=== PATIENT | female | born 1965 | race Caucasian/White ===

== ENCOUNTER 2020-03-01 21:38 | Emergency (ER) | payer MEDICARE, SELFPAY ==
--- NOTE | ~2020-03-01 | CT_ITS ---
EXAMINATION: CT abdomen pelvis wo con DATE: 03/01/2020 23:01 INDICATION: Left flank pain. TECHNIQUE: Computed tomography (CT) of the abdomen and pelvis was performed without intravenous contr ast. Automated exposure control and iterative reconstruction technique were employed. The dose-length product was 1276.05 mGy-cm. COMPARISON: None. FINDINGS: The visualized portions of the lung bases demonstrate mild atelectasis. A calcified left campbell ng nodule and calcified left hilar lymph nodes are consistent with old granulomatous disease. There i s mild bronchiectasis in right middle lobe and lingula. No pleural effusion. The heart size is normal . No pericardial effusion. The liver is normal. The gallbladder is distended, likely secondary to fas ting. The spleen, pancreas, and adrenal glands are normal. The right kidney is absent. There is corti beverley thinning of left kidney. There is a 13 mm stone in left kidney. There is moderate left hydronephr osis with transition point at the ureteropelvic junction. Motion artifact is noted. There is divertic ulosis of the colon without evidence of diverticulitis. There is a small sliding hiatal hernia. The a ppendix is normal. There is a right-sided supraventricular ventral hernia containing fat. There is a right rectus sheath hernia containing fat. There are no pathologically enlarged lymph nodes. There is no free intraperitoneal fluid. There is moderate lumbar spondylosis. IMPRESSION: 1. 13 mm nonobstructing left kidney stone. 2. Moderate left hydronephrosis with transition point at the ureteropelvic junction. Solitary left ki dney. 3. Gallbladder distention, which may be secondary to fasting. Correlate with physical exam to exclude acute cholecystitis. 4. Right-sided supraumbilical ventral hernia and right-sided rectus sheath hernia containing fat. 5. Small sliding hiatal hernia. Reviewed, dictated and finalized at location B. [facility] [employer] IMPRESSION: 1. 13 mm nonobstructing left kidney stone. 2. Moderate left hydronephrosis with transition point at the ureteropelvic junc tion. Solitary left kidney. 3. Gallbladder distention, which may be secondary to fasting. Correlate with ph ysical exam to exclude acute cholecystitis. 4. Right-sided supraumbilical ventral hernia and right-sided rectus sheath costa ia containing fat. 5. Small sliding hiatal hernia.
[2020-03-01 22:10] VITALS: BP 169/97; PULSE 93; RESP 18; TEMP 36.6; O2SAT 95
--- NOTE | 2020-03-01 22:24 | ED.GENADULT ---
HPI - General Adult General Chief complaint: Unspecified Stated complaint: 54YO female w/ known h.o renal calculi and 1 year h/o left flank pain here c/o worse pain over last 4 days. Denies fever, chills. Related Data Allergies Allergy/AdvReac Type Severity Reaction Status Date / Time No Known Allergies Allergy Verified 03/01/20 22:15 Review of Systems Review of Systems: All systems reviewed & are unremarkable except as noted in HPI and below Constitutional: Constitutional: Reports no additional constitutional complaints Cardiovascular: Cardiovascular: Reports no additional cardiovascular complaints Respiratory: Respiratory: Reports no additional respiratory complaints Gastrointestinal: Gastrointestinal: Reports no additional gastrointestinal complaints Genitourinary: Genitourinary: Reports no additional female genitourinary complaints Musculoskeletal: Musculoskeletal: Reports no additional musculoskeletal complaints Integumentary/Breasts: Skin/Breast: Reports system reviewed and no additional complaints, except as docu Neurologic: Reports system reviewed and no additional complaints, except as documented Psychiatric: Psychiatric: Reports no additional psychiatric complaints Endocrine: Endocrine: Reports no additional endocrine complaints Hematologic/Lymphatic: Hematologic/Lymphatic: Reports no additional hematologic/lymphatic complaints Allergic/Immunologic: Allergic/Immunologic: Reports no additional allergic/immunologic complaints [facility] Past Medical History Medical History CKD (chronic kidney disease) stage 2, GFR 60-89 ml/min Renal calculi UPJ (ureteropelvic junction) obstruction Exam Const: General: cooperative and healthy appearing Nutritional Appearance: overweight Orientation/consciousness: patient oriented x3 Limitations: no limitations Chest: Chest palpation & inspection: normal inspection of the chest and normal palpation of entire chest wall Resp: Effort & Inspection: normal respiratory effort Auscultation: clear to auscultation bilaterally Cardio: Jugular venous distension: no JVD Rate: regular rate Rhythm: regular rhythm Heart sounds: S1 normal heart sound present and S2 normal heart sound present GI: Inspection: normal to inspection : General: Yes CVA tenderness on the left Back/Spine/Pelvis: Back: CVA tenderness Skin: General skin exam: normal color and no rashes or lesions noted Neuro: Cognition (Neuro): normal cognition Speech: normal speech Gait exam (Neuro): Normal gait present Sensory Exam: normal sensation Psych: Appearance: grossly normal Affect: normal affect Attitude: cooperative Thought process: Normal thought process present Thought content: Yes Normal thought content present Course Vital Signs Vital signs: Vital Signs Temperature 97.9 F 03/01/20 22:10 Pulse Rate 93 03/01/20 22:10 Respiratory Rate 18 03/01/20 22:10 Blood Pressure 169/97 H 03/01/20 22:10 Pulse Oximetry 95 03/01/20 22:10 Temperature 97.9 F 03/01/20 22:10 Pulse Rate 93 03/01/20 22:10 Respiratory Rate 18 03/01/20 22:10 Blood Pressure 169/97 H 03/01/20 22:10 Pulse Oximetry 95 03/01/20 22:10 Medical Decision Making Differential Diagnosis Differential Diagnosis: L Ureteral Calculi, UTI Medical Records Medical records reviewed: Yes I reviewed the patient's medical records. Vital Signs Vital Signs: Vital Signs Temperature 97.9 F 03/01/20 22:10 Pulse Rate 93 03/01/20 22:10 Respiratory Rate 18 03/01/20 22:10 Blood Pressure 169/97 H 03/01/20 22:10 Pulse Oximetry 95 03/01/20 22:10 Temperature 97.9 F 03/01/20 22:10 Pulse Rate 93 03/01/20 22:10 Respiratory Rate 18 03/01/20 22:10 Blood Pressure 169/97 H 03/01/20 22:10 Pulse Oximetry 95 03/01/20 22:10 Lab Data Lab results reviewed: Yes I reviewed the patient's lab results. Result diagrams: 03/01/20 22:37
[2020-03-01 22:41] LABS: Basophils Absolute Auto 0.09 K/mm3 (0.00-0.10); Basophils Percent Auto 0.6 % (0.0-1.0); Eosinophils Absolute Auto 0.42 K/mm3 (0.02-0.50); Eosinophils Percent Auto 2.9 % (1.0-6.0); Hematocrit 43.6 % (35.0-49.0); Hemoglobin 14.1 g/dL (12.0-15.0); Immature Granulocyte Absolute 0.08 K/mm3 (0.00-0.00); Immature Granulocyte Percent A 0.5 % (0.0-0.0); Lymphocytes Absolute Auto 4.02 K/mm3 (1.10-4.50); Lymphocytes Percent Auto 27.6 % (18.0-42.0); Mean Corpuscular HGB Conc 32.3 g/dL (32.0-36.0); Mean Corpuscular Hemoglobin 29.3 pg (27.0-31.0); Mean Corpuscular Volume 90.6 fL (78.0-102.0); Mean Platelet Volume 9.5 fl (9.2-11.8); Monocytes Absolute Auto 1.08 K/mm3 (0.10-0.90); Monocytes Percent Auto 7.4 % (2.0-11.0); Neutrophils Absolute Auto 8.9 K/mm3 (1.7-7.2); Platelet Count Result 260 K/mm3 (150-420); Red Blood Count 4.81 M/mm3 (4.20-5.40); Red Cell Distribution Width 12.7 % (11.6-14.4); White Blood Count 14.6 K/mm3 (4.8-10.8)
[2020-03-01 22:42] LABS: Add Urine Microscopic? YES; Appearance Urine Cloudy (Clear); Bilirubin Urine Negative (Negative); Blood Urine 1+ (Negative); Color Urine Yellow (Yellow); Glucose Urine UA Negative (Negative); Ketones Urine Negative (Negative); Leukocyte Esterase Ur 3+ LEU/UL (Negative); Nitrate Urine Positive (Negative); Protein Urine Negative (Negative); Specific Grav Ur 1.025 (1.010-1.020); Urobilinogen Urine 0.2 mg/dL (0.2-1.0); pH Urine 5.5 (5.0-8.0)
[2020-03-01 22:50] LABS: Bacteria Urine 4+ /hpf; Squamous Epithelial Cell Urine Few /hpf (Few); WBC Urine >75 /hpf (0-3)
--- NOTE | 2020-03-01 22:50 | PC.NURSE ---
report to maile
[2020-03-01 22:57] LABS: Alanine Aminotransferase 19 U/L (14-59); Albumin Level 3.6 g/dL (3.4-5.0); Alkaline Phosphatase 115 U/L (46-116); Anion Gap 8 mmol/L (8-16); Aspartate Amino Transferase 11 U/L (15-37); Bilirubin,Total 0.2 mg/dL (0.00-1.00); Blood Urea Nitrogen 16 mg/dL (7-18); Calcium 8.9 mg/dL (8.5-10.1); Carbon Dioxide 27 mmol/L (21-32); Chloride 108 mmol/L (98-108); Estimated CRCL calculation 68 ml/min; Estimated Glomerular Filt Rate 54; Glucose 115 mg/dL (70-99); Osmolality Calculated 298 mOsm/kg (285-295); Potassium 4.1 mmol/L (3.5-5.1); Sodium 143 mmol/L (136-145); Total Protein 7.1 g/dL (6.4-8.2)
[2020-03-01 23:48] LABS: Lactic Acid Reflex 1.3 mmol/L (0.4-2.0)
[2020-03-02] MEDS: cefTRIAXone 1 GM VIAL IM
[2020-03-02] MEDS: KETOROLAC (*BKC) 60 MG/2 ML VIAL IM (00:01)
[2020-03-02] MEDS: LIDOCAINE HCL 1% LOCAL INJ 20 ML VIAL (00:01)
[2020-03-02 00:02] VITALS: BP 155/90; PULSE 85; RESP 20; TEMP 36.6; O2SAT 97
== END 2020-03-02 00:12 | disposition home or self-care (01) ==
PROVIDERS: Emergency Provider Family Medicine
DX: N20.0 Calculus of kidney (principal); N18.2 Chronic kidney disease, stage 2 (mild); N39.0 Urinary tract infection, site not specified
CPT/HCPCS: 36415; 74176; 80053; 81001; 83605; 85025; 87086; 87088; 87147; 87186; 96372; 99283; 99284; J0696; J1885

== ENCOUNTER 2021-07-09 16:02 | Emergency (ER) | payer OTHER, SELFPAY ==
[2021-07-09 16:10] VITALS: BP 130/84; PULSE 78; RESP 20; TEMP 36.3; O2SAT 97
--- NOTE | 2021-07-09 16:16 | ED.SKABFB ---
HPI - Skin/Abscess/Foreign Bdy General Chief complaint: Skin/Abscess/Foreign Body Stated complaint: AMB Time Seen by Provider: 07/09/21 16:16 Source: patient, EMS and RN notes reviewed Mode of arrival: ambulatory Limitations: no limitations History of Present Illness HPI narrative: patient states she has several areas excoriation and scabbed over areas. It has been gone for approximately 1 week. She denies any fever chills. She thinks she may have been bitten by a spider. She has areas on her scalp, right upper anterior candelaria, bilateral chest the upper area of the breasts, one on her right anterior shoulder complaint: abscess/boil Onset (ago): week(s) (1) Location: head, chest, LLE and RLE Severity: moderate Quality: burning, aching and pruritic Pain Consistency: constant Relieving factors: none Exacerbating factors: palpation Context: none Associated symptoms: denies other symptoms Related Data Allergies Allergy/AdvReac Type Severity Reaction Status Date / Time No Known Allergies Allergy Verified 03/01/20 22:15 Review of Systems Review of Systems: All systems reviewed & are unremarkable except as noted in HPI and below Constitutional: Constitutional: Denies chills and Denies fever(s) PMFSH Past Medical History Medical History (Updated 07/09/21 @ 17:23 by Chivo Rocha MD) CKD (chronic kidney disease) stage 2, GFR 60-89 ml/min Renal calculi UPJ (ureteropelvic junction) obstruction Surgical History Surgical History (Updated 07/09/21 @ 16:31 by Chivo Rocha MD) History of nephrectomy right Social History Social History (Updated 07/09/21 @ 16:31 by Chivo Rocha MD) Smoking packs per day: 1 Smoking cigarettes per day: 20.0 Smoking status: Current every day smoker Tobacco type: cigarettes Alcohol intake: current Alcohol use details: occasional Substance use: never Exam Const: General: healthy appearing, no acute distress and alert Nutritional Appearance: well nourished and obese centrally obese Orientation/consciousness: patient oriented x3 Other: female nurse in room during examination. HENMT: Head: normal to inspection Ears: external ears normal Face and sinus: normal facial exam Mouth: Yes moist mucous membranes Eyes: Conjunctivae: conjunctivae normal Pupils: Equal, round and reactive pupils present EOM: EOMs intact bilaterally Neck: Neck: normal visual inspection Resp: Effort & Inspection: normal respiratory effort Auscultation: clear to auscultation bilaterally Cardio: Rate: regular rate Rhythm: regular rhythm GI: Auscultation: normal bowel sounds Back/Spine/Pelvis: Cervical Spine: cervical ROM normal Thoracic/Lumbar Spine: thoraco-lumbar ROM normal Skin: General skin exam: normal color Wounds: wounds noted Other: Patient has multiple excoriated wounds of different sizes. All of them have surrounding erythema and appears normal with healing. Some have scabbed over areas with no evidence of drainage wound edges have good epithelialization with proper healing. I removed one area of scab on the left breast which showed normal skin cell breakdown. This area is swabbed for culture. None of the areas showed any evidence of abscess and none of them were able to express any purulent drainage. She has an area on her right proximal shoulder. Two areas on her scalp 1st on the right posterior parietal area the other on the left upper occiput. One area on her right lower leg just inferior to the patella. Two areas one on the right breast, largest is on the left breast which is scabbed over and the scab was easily detached do show a well-healing. Neuro: General: patient oriented x3, moves all extremities, no meningeal signs, no focal motor deficits and CN's II-XI intact bilaterally Speech: normal speech Gait exam (Neuro): Normal gait present Extrem: General: normal to inspection and no clubbing, cyanosis or edema Psych: Appearance: grossly normal and well ke
[2021-07-09 16:40] LABS: Basophils Absolute Auto 0.09 K/mm3 (0.00-0.10); Basophils Percent Auto 0.8 % (0.0-1.0); Eosinophils Absolute Auto 0.25 K/mm3 (0.02-0.50); Eosinophils Percent Auto 2.1 % (1.0-6.0); Hematocrit 47.5 % (35.0-49.0); Hemoglobin 15.2 g/dL (12.0-15.0); Immature Granulocyte Absolute 0.06 K/mm3 (0.00-0.00); Immature Granulocyte Percent A 0.5 % (0.0-0.0); Lymphocytes Absolute Auto 2.56 K/mm3 (1.10-4.50); Lymphocytes Percent Auto 21.8 % (18.0-42.0); Mean Corpuscular Hemoglobin 29.5 pg (27.0-31.0); Mean Corpuscular Volume 92.1 fL (78.0-102.0); Mean Platelet Volume 9.4 fl (9.2-11.8); Monocytes Percent Auto 8.5 % (2.0-11.0); Neutrophils Absolute Auto 7.8 K/mm3 (1.7-7.2); Neutrophils Percent Auto 66.3 % (50.0-70.0); Platelet Count Result 296 K/mm3 (150-420); Red Blood Count 5.16 M/mm3 (4.20-5.40); Red Cell Distribution Width 12.5 % (11.6-14.4); White Blood Count 11.8 K/mm3 (4.8-10.8)
[2021-07-09 16:50] LABS: CRP 1.6 mg/dL (0.0-0.9)
[2021-07-09 16:55] LABS: Anion Gap 8 mmol/L (8-16); Blood Urea Nitrogen 13 mg/dL (7-18); Calcium 9.5 mg/dL (8.5-10.1); Carbon Dioxide 29 mmol/L (21-32); Chloride 105 mmol/L (98-108); Estimated Glomerular Filt Rate 54; Glucose 128 mg/dL (70-99); Osmolality Calculated 296 mOsm/kg (285-295); Potassium 3.6 mmol/L (3.5-5.1); Sodium 142 mmol/L (136-145)
[2021-07-09 17:13] LABS: Amphetamine Screen Urine Negative (Negative); Barbiturate Screen Urine Negative (Negative); Benzodiazepines Screen Urine Negative (Negative); Cannabinoid Screen Urine Negative (Negative); Cocaine Screen Urine Negative (Negative); Methadone Screen Urine Negative (Negative); Opiate Screen Urine Negative (Negative); Phencyclidine Screen Urine Negative (Negative)
[2021-07-09 17:32] VITALS: BP 130/84; PULSE 78; RESP 20; TEMP 36.3; O2SAT 97
--- NOTE | 2021-07-09 17:34 | PC.NURSE ---
1620 FEMALE RN IN ROOM WITH DR MERCEDES WHEN ASSESSING PT WOUNDS
== END 2021-07-09 17:34 | disposition home or self-care (01) ==
PROVIDERS: Emergency Provider Emergency Medicine
DX: T14.8XXA Other injury of unspecified body region, initial encounter (principal); N18.2 Chronic kidney disease, stage 2 (mild); F17.200 Nicotine dependence, unspecified, uncomplicated
CPT/HCPCS: 36415; 80048; 80307; 85025; 86140; 87070; 87147; 87205; 99283